=== PATIENT | female | born 1990 | race Caucasian/White ===

== ENCOUNTER 2016-07-21 17:17 | Emergency (ER) | payer BC, MEDICAID ==
[2016-07-21 17:33] VITALS: BP 141/88
[2016-07-21] MEDS ORDERED: Lidocaine 1% with EPINEPHrine 1:100,000 50 ML MDV INFILT STA (18:02)
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
== END 2016-07-21 18:31 | disposition home or self-care (01) ==
LOC: JP.ED 17:17
DX: L02.214 Cutaneous abscess of groin (principal); F17.210 Nicotine dependence, cigarettes, uncomplicated
CPT/HCPCS: 10060; 87070; 87077; 87186; 87205; 99283-25

== ENCOUNTER 2016-12-06 14:21 | Emergency (ER) | payer BC, MEDICAID ==
[2016-12-06 15:47] VITALS: BP 145/89
[2016-12-06] MEDS ORDERED: Ketorolac 60 MG/2 ML SDV IM ONE (16:24)
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
== END 2016-12-06 17:55 | disposition home or self-care (01) ==
LOC: JP.ED 14:21
DX: G44.209 Tension-type headache, unspecified, not intractable (principal); B34.9 Viral infection, unspecified; F17.210 Nicotine dependence, cigarettes, uncomplicated; Z79.2 Long term (current) use of antibiotics; Z98.49 Cataract extraction status, unspecified eye; Z96.22 Myringotomy tube(s) status
CPT/HCPCS: 80053; 85025; 86308; 86618; 86666; 86753; 96372; 99284; J1885; 36415; 99283

== ENCOUNTER 2017-02-17 10:42 | Emergency (ER) | payer BC, MEDICAID ==
[2017-02-17 11:07] VITALS: BP 139/93
[2017-02-17] MEDS ORDERED: cefTRIAXone 1 GM Vial IM ONE (12:40)
[2017-02-17] MEDS ORDERED: Acetaminophen/HYDROcodone 325-5 MG Tab PO ONE (12:40)
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
== END 2017-02-17 13:41 | disposition home or self-care (01) ==
LOC: JP.ED 10:42
DX: L02.215 Cutaneous abscess of perineum (principal); F32.9 Major depressive disorder, single episode, unspecified; Z98.49 Cataract extraction status, unspecified eye; Z96.22 Myringotomy tube(s) status; Z98.890 Other specified postprocedural states
CPT/HCPCS: 96372; 99283; A9270; J0696